=== PATIENT | female | born 1985 | race African-American/Black ===

== ENCOUNTER 2017-04-22 09:30 | Day surgery (SDC) | payer MEDICAID ==
[2017-04-22] VITALS (10 sets, daily range): BP systolic 89–121; BP diastolic 56–65; BMI 24.3
[~2017-04-22] VITALS: Ht 160 cm; Wt 62.1 kg
[~2017-04-22 09:30] MED LIST: IBUP800T37 PO; LOR5/325 PO; PNV1TABL24
--- NOTE | 2017-04-22 10:23 | History & Physical ---
History of Present Illness Age of Patient: 31 Chief Complaint Cerclage removal History of Present Illness Presents for cerclage removal. Pt is 37.1 weeks in her 3rd . Her first was a 22 week PPROM and PTL&D with some suspicion of cervical insufficiency. Second was managed by early cerclage and delivered at 38.3 weeks after removal at 37 weeks. This has been managed the same. Double Juarez cerclage placed on 11/17/16 at 15 weeks. No problems otherwise this . She is GBS positive. Past Medical, Surgical, Family and Obstetric Histories reviewed. Please see ACOG chart. History Allergies: Coded Allergies: No Known Drug Allergies (Unverified , 07/19/14) Social History: Single, student at . Denies noxious habits. Med Rec Home Meds Active Scripts Ibuprofen (IBUPROFEN) 800 Mg Tab, 800 MG PO Q8H@08,16,00 Y for PAIN, #30 TAB 0 Refills Prov:HEAVEN KAISER MD 12/17/14 Reported Medications Pnv No.122/Iron/Folic Acid ( Multi Tablet) 1 Each Tablet, 1 QHS 12/08/14 Review of Systems All Systems Reviewed/Normal: Yes, Except as Noted Other All other systems reported Negative. Exam General Exam General Apperance: Alert/Awake/No Acute Distress Neuro: No Gross deficits Eyes: Normal Extraocular Movement & Vison Cardiovascular: Regular Rate and Rhythm Respiratory: No Respiratory Distress, Clear to Auscultation Abdomen: Soft, Non-Tender, Non-Distended Integumentary: Skin Intact without Lesions or Rash Psychological: Alert & Oriented X3 Fetus FHT Accelerations: 15X15 FHT Category: I Assessment and Plan Problems: (1) Cervical insufficiency in , antepartum (2) Cervical cerclage suture present Assessment & Plan: Will remove cerclage and monitor for a few hours for contractions. Otherwise, routine care. Problem Qualifiers (1) Cervical cerclage suture present: Trimester: third trimester Qualified Codes: O34.33 - Maternal care for cervical incompetence, third trimester HEAVEN KAISER MD Apr 22, 2017 10:23
[2017-04-22] MEDS ORDERED: EPIDURAL KEYS XX PRN (11:00)
[2017-04-22] MEDS ORDERED: ePHEDrine 25 MG/5 ML DISP.SYR IVP PRN (11:10)
[2017-04-22] MEDS ORDERED: FENTANYL/ROPIVACAINE 100 ML BAG EPI PRN (11:10)
[2017-04-22] MEDS ORDERED: fentaNYL CITR 100 MCG/2 ML AMP IT PRN (11:10)
[2017-04-22] MEDS ORDERED: LIDO/EPI 2% MPF 1:200,000 20ML EPI PRN (11:10)
[2017-04-22] MEDS ORDERED: LIDOCAINE/PF 2% 200MG/10ML AMP 200 MG/10 ML AMPUL EPI PRN (11:10)
[2017-04-22] MEDS ORDERED: BUPIVACAINE 0.25% MPF INJ EPI PRN (11:10)
[2017-04-22] MEDS ORDERED: BUPIVACAINE 0.5% INJ 30ML VIAL EPI PRN (11:10)
[2017-04-22] MEDS: LR(*) 1000 ML BAG 1,000 ML IV SCH ×2 (11:27→13:28)
[2017-04-22 11:29] LABS: PLATELET COUNT, AUTOMATED 126 K/uL (150-450)
[2017-04-22] MEDS ORDERED: PHENYLEPHRINE/NS/PF 0.4MG/10ML ONE (12:19)
[2017-04-22] MEDS ORDERED: ONDANSETRON 4 MG/2 ML VIAL ONE (12:45)
[2017-04-22] MEDS ORDERED: APAP/HYDROCODONE 325/5 TAB PO PRN ×2 (13:05→13:30)
--- NOTE | 2017-04-22 13:11 | Post Operative Note ---
Operative Note - MANAGER MASSAGE DEPARTMENT Operative Day Date: Apr 22, 2017 Time: 13:06 Physicians Surgeon: Garo Anesthesia: spinal Diagnosis Pre-Op Diagnosis: cerclage in place 37 weeks Post-Op Diagnosis: same Procedure Findings: double cerclage Procedure(s): cerclage removal Specimen Removed:(Maybe N/A): 520220 Complications: embedded cerclage Fluids Fluids: IV crystalloid Estimated Blood Loss: minimal Dictated Date OP Note Dictated: Apr 22, 2017 Time OP Note Dictated: 13:07 Copies to: HEAVEN KAISER MD, TRAVIS MD Apr 22, 2017 13:11
--- NOTE | 2017-04-22 13:38 | Anesthesia OB Pre-Anes Eval ---
History of Present Illness Anesthesia Start Date: Apr 22, 2017 Anesthesia Start Time: 11:55 OB Anesthesia Diagnosis: other (Here for removal cervical circlage sutures, to be done in OR) EDC: May 09, 2017 : 3 (3) Para: 1 Pain Ratin Result Diagram: 04/22/17 1120 Height (Inches): 1.00 Weight (Pounds): 121 BMI Calculated: 22.86 Past Medical History Medical History: no pertinent history Surgical History: noncontributory Previous Anesthesia: spinal Attended Childbirth Classes?: No Hx Anesthesia Reactions: No Hx Family Anesthesia Reaction: No Home Meds Active Scripts Ibuprofen (IBUPROFEN) 800 Mg Tab, 800 MG PO Q8H@08,16,00 Y for PAIN, #30 TAB 0 Refills Prov:HEAVEN KAISER MD 12/17/14 Reported Medications Pnv No.122/Iron/Folic Acid ( Multi Tablet) 1 Each Tablet, 1 QHS 12/08/14 Allergies: Coded Allergies: No Known Drug Allergies (Unverified , 07/19/14) Anesthesia OB ROS Airway Class: l GI ROS: NPO ASA Classification: 2 Assessment and Plan Anesthesia Plan: SAB Anesthesia Stop Day: Apr 22, 2017 Anesthesia Stop Time: 13:10 AMADA COYLE CRNA Apr 22, 2017 13:38
--- NOTE | 2017-04-22 17:42 | KLINGLER C-SECTION ---
EVENT DATE: April 22, 2017 SURGEON: Aaron Wyman MD ANESTHESIOLOGIST: Mikal Mcfadden CRNA ANESTHESIA: Spinal PREOPERATIVE DIAGNOSES 1. 37 week, 2 day intrauterine . 2. Cervical insufficiency. 3. Cervical cerclage in place. POSTOPERATIVE DIAGNOSES 1. 37 week, 2 day intrauterine . 2. Cervical insufficiency. 3. Cervical cerclage in place. PROCEDURES PERFORMED Cerclage removal. ESTIMATED BLOOD LOSS Minimal. FLUIDS IV crystalloid. FINDINGS Initial attempts at removing the cerclage were performed in the labor room without local anesthetic. The initial procedure was complicated by one of the cerclages incidentally being cut midway through the knot instead of one of the arms of the cerclage due to it being imbedded, and due to the patient's discomfort and light bleeding from around the cerclage site, I elected to take her to the OR and have spinal anesthetic place. PROCEDURE IN DETAIL Once spinal anesthetic had been placed and IV fluids had been administered, she was moved to the dorsal lithotomy position with a leftward abdominal tilt and draped. The vagina and the cervix were prepped with Betadine. Retractors were used for visualization and exposure. No visible portions of the cerclage were found. However, I could palpate the knot at the 12 o'clock position beneath surface vaginal mucosa. Therefore, this surface vaginal mucosa was dissected away with a linear incision along the length of the tunnel to the cerclage. Once that had been adequately exposed and I saw a visible portion of the knot, it was grasped with a grasper and put on stretch, revealing one of the arms, which was cut, and the cerclage was then removed. The remaining dissection bed was cauterized on small capillary bleeders and received 3-0 Chromic running locking stitch for hemostasis. Upon completion, there was minimal bleeding. Cervix was dilated on manual check to approximately 2 cm with no palpable cerclage remaining. Therefore she was returned to the dorsal supine position and administered 2 grams Mefoxin for antibiotic prophylaxis. She was taken to recovery in stable condition. We will observe her in labor and delivery for a period of time to see if labor ensues. LEE
--- NOTE | 2017-04-22 18:06 | Labor Progress Note ---
Labor Subjective Progress Notes Subjective Having contractions this afternoon and low back pain. Not progressive. Was able to straight cath after the procedure with 150ml return. No void since until now she got up to BR to void and had 1000ml out. Pt reports feeling much better now and contractions spacing out. Cervix is 3 cm and was able to get a better exam this time. Last exam after procedure was 2 cm. Feeling Movement?: Yes Vaginal Discharge/Fluid: Bloody Show (due to procedure) Labor Pain: Mild Labor Objective Vital Signs Vital Signs Date Time Temp Pulse Resp B/P (MAP) Pulse Ox O2 Delivery O2 Flow Rate FiO2 04/22/17 16:28 98.2 81 16 121/64 (83) 100 Room Air 04/22/17 14:00 2.0 Cervical Dialation: 3 Cervical Effacement (%): 75 Cervical Consistency: Soft Cervical Position: Anterior Station: -2 Presentation: Vertex Fetus Heart Tone Variabilty: Moderate FHT Accelerations: 15X15 FHT Category: I Other Result Diagram: 04/22/17 1120 Assessment and Plan Problems: (1) Cervical insufficiency in , antepartum (2) Cervical cerclage suture present Assessment & Plan: Pt [place] here in town and close to hospital. She is not in active labor currently. Will allow to go home to rest and hydrate. She will return right away if she gets significantly worse as the night advances. Problem Qualifiers (1) Cervical cerclage suture present: Trimester: third trimester Qualified Codes: O34.33 - Maternal care for cervical incompetence, third trimester HEAVEN KAISER MD Apr 22, 2017 18:06
[2017-04-22] MEDS ORDERED: DEXT15CA2 PO (18:12)
--- NOTE | 2017-04-22 18:16 | Anesthesia Post Eval Note ---
Anesthesia Post Eval Note Pt able to participate in Eval: Yes Cardiovascular Status: Satisfactory Respiratory Status: Satisfactory Pain Managment: Satisfactory PO Nausea/Vomiting: Satisfactory Temperature Management: Satisfactory Mental Status: Satisfactory, Alert, Oriented X3 Post-Op Hydration Status: Satisfactory, Tolerating PO Well, Voiding w/o Difficulty Anesthesia Type: SAB Anesthesia Tolerance: S/P SAB for circlage removal in OR. Ambulatory without S/S PDPH. She is reporting continued tingling anterior left thigh, but able to ambulate and void appropriately. She was reassured that full sensation of LLE should return overnight. AMADA COYLE CRNA Apr 22, 2017 18:16
[2017-04-29] VITALS: Ht 160 cm; Wt 62.1 kg
== END 2017-04-22 19:15 | disposition home or self-care (01) ==
LOC: OR 09:30 → L&D 09:30 → OB 09:30 → L&D 09:36 → OB 09:36 → OR 19:15 → L&D 19:15 → OB 19:15 → EDSTATUS 05-01 14:50
PROVIDERS: ATTEND Obstetrics & Gynecology
DX: O34.33 Maternal care for cervical incompetence, third trimester (principal); Z3A.37 37 weeks gestation of pregnancy
CPT/HCPCS: 59899; 85025; 86850; 86900; 86901; J0694; J2370; J2405; J7120

== ENCOUNTER 2017-04-28 22:32 | Inpatient (IN) | payer MEDICAID ==
[~2017-04-28] VITALS: Ht 160 cm; Wt 61.7 kg
[~2017-04-28 22:32] MED LIST changes: +DEXT15CA2 PO
[2017-04-28 22:48] VITALS: BP 120/64
[2017-04-28] MEDS ORDERED: DLR(*) 1000 ML BAG 1,000 ML IV PRN (23:29)
[2017-04-28] MEDS ORDERED: FAMOTIDINE(*) 20MG/50ML PREMIX 50 ML IVPB PRN (23:29)
[2017-04-28] MEDS ORDERED: LR(*) 1000 ML BAG 1,000 ML IV PRN (23:29)
[2017-04-28] MEDS ORDERED: OXYTOCIN 30 UNIT/D5LR 500 ML 500 ML IV PRN (23:29)
[2017-04-28] MEDS ORDERED: METOCLOPRAMIDE 10 MG/2 ML SDV IVP PRN (23:30)
[2017-04-28] MEDS ORDERED: LIDOCAINE 1% LOCAL 300 MG/30ML INJ PRN (23:30)
[2017-04-28] MEDS ORDERED: fentaNYL CITR 100 MCG/2 ML AMP IVP PRN (23:30)
[2017-04-28] MEDS ORDERED: FLUSH 10 ML SYR IVP PRN (23:30)
[2017-04-28] MEDS ORDERED: cefOXitin/DEX(*) 2GM/50ML PREM 50 ML IVPB PRN (23:30)
[2017-04-28] MEDS ORDERED: PENICILLIN G 5 MILLUN/100 ML 100 ML ONE (23:42)
[2017-04-29] VITALS: BP 120/64; Ht 160 cm; Wt 61.7 kg
[2017-04-29 00:03] LABS: PLATELET COUNT, AUTOMATED 129 K/uL (150-450)
--- NOTE | 2017-04-29 00:30 | History & Physical ---
History of Present Illness Age of Patient: 31 : 3 Para or TPAL: 1011 EDC per LMP: May 12, 2017 Estimated Gestational Age: 38.1 Chief Complaint Uterine contractions. Loss of fluid. History of Present Illness The patient is a 31 year old 3 para 1011 admitted at 38 1/7 weeks estimated gestational age with an estimated date of delivery 05/12/17. Patient is admitted with complaint of loss of fluid and contractions . No vaginal bleeding. Good movement and regular contractions. She was evaluated for active labor. She had course complicated by cerclage placement for history of shortened cervix and delivery at 22 weeks with subsequent with cerclage delivery at 38 weeks. She had cerclage removed at 37 weeks. Her record was reviewed. History Allergies: Coded Allergies: No Known Drug Allergies (Unverified , 07/19/14) Social History: Single, student at . Denies noxious habits. Med Rec Home Meds Reported Medications Dextromethorphan Hbr (TUSSIN COUGH) 15 Mg Capsule, 5 MG PO Q12H Y for COUGH, CAPSULE 04/22/17 Pnv No.122/Iron/Folic Acid ( Multi Tablet) 1 Each Tablet, 1 QHS 12/08/14 Discontinued Scripts Ibuprofen (IBUPROFEN) 800 Mg Tab, 800 MG PO Q8H@08,16,00 Y for PAIN, #30 TAB 0 Refills Prov:HEAVEN KAISER MD 12/17/14 Exam General Exam Cardiovascular: Regular Rate and Rhythm Respiratory: Clear to Auscultation Abdomen: Gravid - Non-Tender Extremities: No Edema Cervical Dialation: 5 (rn) Cervical Effacement (%): 90 Station: -2 Uterine Contractions(Q min): 5 Uterine Contraction Strength: Moderate Fetus Heart Tones: 130 Heart Tone Variabilty: Moderate FHT Accelerations: 15X15 FHT Category: I Medical Decision Making Data Points Result Diagram: 04/28/17 3486 Assessment and Plan Problems: (1) Active labor at term Onset Date: 12/16/2014 Status: Resolved Assessment & Plan: patient reported exam this am at 4 cm, now 5 cm per RN. GBS positive will start Penicillin for GBS prophylaxis. Will monitor for change in cervix Copies to: BRIAN ORTIZ MD, JOHN MD Apr 29, 2017 00:30
[2017-04-29] MEDS ORDERED: ESOM40CA42 PO (01:07)
[2017-04-29] MEDS ORDERED: PREN-127 PO (01:08)
[2017-04-29] MEDS ORDERED: OXYTOCIN 30 UNIT/D5LR 500 ML 500 ML IV PRN (03:00)
[2017-04-29] MEDS ORDERED: PENICILLIN G 2.5 MILLUN/100 ML 100 ML IVPB SCH ×2 (03:45→08:00)
--- NOTE | 2017-04-29 07:10 | Labor Progress Note ---
Labor Subjective Progress Notes Subjective PATIENT ON BALL LABORING, FEELING CONTRACTIONS Vaginal Discharge/Fluid: Clear Fluid, No Bloody Show Labor Pain: Moderate Labor Objective Vital Signs Vital Signs Date Time Temp Pulse Resp B/P (MAP) Pulse Ox O2 Delivery O2 Flow Rate FiO2 04/29/17 00:00 97.2 82 14 120/64 (82) 99 Room Air Cervical Dialation: 8 Cervical Effacement (%): 100 Cervical Consistency: Soft Cervical Position: Anterior Station: 0 Presentation: Vertex Uterine Contractions(Q min): 3 Uterine Contraction Strength: Strong Fetus Heart Tones: 140 Heart Tone Variabilty: Moderate FHT Accelerations: 15X15 FHT Category: I Other Result Diagram: 04/28/17 8445 Assessment and Plan Problems: (1) Active labor at term Onset Date: 12/16/2014 Status: Resolved Assessment & Plan: PATIENT ON PITOCIN AT 14, MAKING PROGRESS IN LABOR ANTICIPATED VAGINAL DELIVERY BRIAN ORTIZ MD Apr 29, 2017 07:10
--- NOTE | 2017-04-29 09:53 | OB Delivery Note ---
Delivery Note Vaginal Delivery Type: Spont. Vaginal Delivery Delivery Date: Apr 29, 2017 Delivery Time: 09:44 Estimated Gestational Age(wks): 38.1 Labor Stage III (minutes): 3 Infant Sex: Female Apgars: 1 Minute (8), 5 Minute (9) Estimated Blood Loss: 200 Cell Repairer in Attendence: MILO Cruz MD Apr 29, 2017 09:53
[2017-04-29] MEDS ORDERED: HYDROCORTISONE 2.5% CR 30GM TB PR PRN (09:55)
[2017-04-29] MEDS ORDERED: LANOLIN OINT 7 GM TUBE TP PRN (09:55)
[2017-04-29] MEDS ORDERED: BENZOCAINE 20% 60 ML BTL TP PRN (09:55)
[2017-04-29] MEDS ORDERED: ACETAMINOPHEN 325 MG TAB PO PRN (09:55)
[2017-04-29] MEDS ORDERED: APAP/HYDROCODONE 325/5 TAB PO PRN (09:55)
[2017-04-29] MEDS ORDERED: GLYCERIN/WITCH HAZEL LEAF 1 PK TP PRN (09:55)
[2017-04-29] MEDS ORDERED: MAGNESIUM HYDROXIDE* 30ML UDCP PO PRN (09:55)
[2017-04-29] MEDS ORDERED: IBUP800T37 PO (09:56)
[2017-04-29] MEDS ORDERED: LOR5/325 PO (09:56)
[2017-04-29] MEDS: IBUPROFEN 800 MG TAB PO SCH ×2 (11:13→17:38)
[2017-04-29 11:44] VITALS: BP 109/51
[2017-04-29 14:48] VITALS: BP 109/59
--- NOTE | 2017-04-29 15:48 | DELIVERY NOTE ---
DELIVERY DATE: April 29, 2017 SURGEON: Celeste Trinidad MD ANESTHESIA: None. PREOPERATIVE DIAGNOSES 1. 31-year-old 3, para 1 at 38 weeks with spontaneous rupture of membranes. 2. Group B strep positive. POSTOPERATIVE DIAGNOSES 1. This patient is a 3, para 1 at 38 weeks with spontaneous rupture of membranes. 2. Group B strep positive. 3. Delivery of a viable female at 0944 hours, weighing 2804 g or 6 pounds 2.9 ounces with Apgars of 8 at one minute and 9 at five minutes. PROCEDURE PERFORMED Spontaneous vaginal delivery. INDICATIONS FOR PROCEDURE This patient is a 31-year-old 3, para 1-0-1-1 who presented at 38 weeks 1 day with the complaint of spontaneous rupture of membranes. At the time of presentation, she was 5 cm dilated, 90% effaced, and -2 station. She was, therefore, admitted, and I initiated penicillin for group B strep prophylaxis. She was started on Pitocin at 0306 hours and slowly progressed to complete at 0944 hours, at which time she was pushing. DESCRIPTION OF PROCEDURE The patient was noted to be complete and pushing. She was able to deliver the 's vertex spontaneously in the ERAN position over an intact perineum. A nuchal cord was noted and relieved around the head. The anterior shoulder delivered easily, followed by the posterior shoulder. The remainder of the infant was then easily delivered. The infant had spontaneous cry and spontaneous movement of all four extremities. The was dried and stimulated, and the oropharynx and nasopharynx were bulb suctioned. The ' s cord was clamped times two and cut by the father of the baby. Cord blood was then obtained. Pitocin was started through IV fluid to help firm the uterus. Examination of the cervix, vaginal vault, and perineum revealed no lacerations; however, she does have a palpable suture at the anterior lip of the cervix which was placed at the time of cerclage removal one week prior. The patient tolerated this procedure well and recovered in labor and delivery with her . All sponge and needle counts were correct at the end of this procedure. [facility]
[2017-04-29 20:20] VITALS: BP 105/52
[2017-04-29 22:00] VITALS: BP 99/55
[2017-04-29] MEDS: DOCUSATE CALCIUM 240 MG CAP PO SCH (22:05)
[2017-04-30] MEDS ORDERED: PENICILLIN G 2.5 MILLUN/100 ML 100 ML IVPB SCH
[2017-04-30] MEDS: IBUPROFEN 800 MG TAB PO SCH ×2 (01:17→10:10)
[2017-04-30 05:10] VITALS: BP 106/57
[2017-04-30] MEDS ORDERED: BENZ100C4 PO (08:14)
[2017-04-30] MEDS ORDERED: BENZOCAINE/MENTHOL 1 EACH LOZG PO PRN (08:15)
--- NOTE | 2017-04-30 08:15 | OB/GYN Discharge Summary ---
Discharge Summary Reason for Hosp/Final Diag: (1) Active labor at term Onset Date: 12/16/2014 Status: Resolved Hospital Course & Plan: PATIENT ON PITOCIN AT 14, MAKING PROGRESS IN LABOR ANTICIPATED VAGINAL DELIVERY Lates Vital Signs Vital Signs Date Time Temp Pulse Resp B/P (MAP) Pulse Ox O2 Delivery O2 Flow Rate FiO2 04/30/17 05:10 98.3 75 14 106/57 (73) 04/29/17 14:48 97 Room Air Weight (Pounds): 136 Result Diagram: 04/30/17 0550 Condition: Improved Discharge: Home, Self Half-Way Meds Active Scripts Hydrocodone Bit/Acetaminophen (HYDROCODON-ACETAMINOPHEN 5-325) 1 Each Tablet, 1 EACH PO Q4-6H Y for pain, #20 TAB 0 Refills Prov:MILO ABDI MD 04/29/17 Reported Medications Vits W-Ca,Fe,Fa(<1MG) ( VITAMINS) 1 Each Tablet, 1 EACH PO DAILY, #1 TAB 04/29/17 Esomeprazole Magnesium (NEXIUM) 40 Mg Capsule.dr, 1 CAP PO QDAY, #1 CAP 04/29/17 Discontinued Reported Medications Dextromethorphan Hbr (TUSSIN COUGH) 15 Mg Capsule, 5 MG PO Q12H Y for COUGH, CAPSULE 04/22/17 Pnv No.122/Iron/Folic Acid ( Multi Tablet) 1 Each Tablet, 1 QHS 12/08/14 Follow up Referrals: DIRECTOR OF CODING - In 6 Weeks @ [facility] with Aaron Wyman Md Discharge Diet: As Tolerates Discharge Activity: Pelvic Rest MILO ABDI MD Apr 30, 2017 08:15
--- NOTE | 2017-04-30 08:18 | OB/GYN Progress Note ---
OB Subjective Progress Notes Subjective Doing well. Pain controlled with oral medications. Tolerating regular diet. Ambulating. Voiding. Normal lochia. No preeclampsia symptoms. OB Objective Physical Exam Vital Signs Date Time Temp Pulse Resp B/P (MAP) Pulse Ox O2 Delivery O2 Flow Rate FiO2 04/30/17 05:10 98.3 75 14 106/57 (73) 04/29/17 14:48 97 Room Air General Appearance: Alert/Awake/No Acute Distress Neurological: No Gross deficits Eyes: Normal Extraocular Movement & Vison, PERRLA Cardiovascular: Normal Rhythm & Peripheral Pulses, Regular Rate and Rhythm Respiratory: No Respiratory Distress, Clear to Auscultation Abdomen: Soft, Non-Tender, Non-Distended, Fundus Firm Musculoskeletal: No Weakness/Pain Extremities: No Cyanosis,Clubbing or Edema, No Edema Integumentary: Skin Intact without Lesions or Rash Psychological: Alert & Oriented X3, Appropriate Mood & Affect Result Diagram: 04/30/17 0550 Assessment and Plan Problems: (1) care and examination immediately after delivery Assessment & Plan: PPD#1 s/p . Meeting milestones. Desires discharge to home today. Discussed routine expectations. Questions answered. Follow up in clinic in 6wks for check. (2) Active labor at term Onset Date: 12/16/2014 Status: Resolved MILO ABDI MD Apr 30, 2017 08:18
[2017-04-30] MEDS ORDERED: MEASLES,MUMP,RUBELLA VAC 0.5ML SUBQ ONE (09:55)
[2017-04-30] MEDS ORDERED: DIPHTH/TETANUS/ACEL. PERTUSSIS IM ONLY ONE (09:55)
[2017-04-30] MEDS ORDERED: INFLUENZA VIRUS VAC 0.5 ML SYR IM ONLY ONE (09:55)
[2017-04-30 10:10] VITALS: BP 107/63
[2017-04-30] MEDS: DOCUSATE CALCIUM 240 MG CAP PO SCH (10:10)
== END 2017-04-30 12:10 | disposition home or self-care (01) | DRG 775 ==
LOC: OB 22:32 → OBSVTOIN 22:32
PROVIDERS: ADMIT Obstetrics & Gynecology; ATTEND Obstetrics & Gynecology
PROC: 10E0XZZ Delivery of Products of Conception, External Approach (ICD-10-PCS; principal; 2017-04-29)
DX: O99.824 Streptococcus B carrier state complicating childbirth (principal); O34.33 Maternal care for cervical incompetence, third trimester; O69.81X0 Labor and delivery complicated by cord around neck, without compression, not applicable or unspecified; O99.62 Diseases of the digestive system complicating childbirth; K21.9 Gastro-esophageal reflux disease without esophagitis; Z37.0 Single live birth; Z3A.38 38 weeks gestation of pregnancy
CPT/HCPCS: 36415; 36416; 82948; 84112; 85025; 85027; 86850; 86900; 86901; J2540; J2590; J3010; J7120